=== PATIENT | female | born 1980 | race Caucasian/White ===

== ENCOUNTER 2017-11-27 07:48 | Emergency (ER) | payer OTHER, SELFPAY ==
[2017-11-27 07:50] VITALS: BP 150/80; PULSE 82; RESP 16; TEMP 36.3; O2SAT 99
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
[2017-11-27] MEDS: Ibuprofen 600 MG TAB PO (08:49)
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
[2017-11-27 10:29] VITALS: BP 141/72; PULSE 61; RESP 17; TEMP 36.7; O2SAT 96
== END 2017-11-27 11:50 | disposition home or self-care (01) ==
PROVIDERS: Emergency Provider Physician Assistant; PCP Nurse Practitioner Gerontology
DX: S92.351A Displaced fracture of fifth metatarsal bone, right foot, initial encounter for closed fracture (principal); S92.211A Displaced fracture of cuboid bone of right foot, initial encounter for closed fracture; S92.021A Displaced fracture of anterior process of right calcaneus, initial encounter for closed fracture; V43.52XA Car driver injured in collision with other type car in traffic accident, initial encounter
CPT/HCPCS: 29515; 99284; 73630; 73700; 99285; E0114; Q9967

== ENCOUNTER 2017-12-23 16:31 | Outpatient (CLI) | payer OTHER, SELFPAY ==
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
== END 2017-12-23 16:51 ==
PROVIDERS: PCP Nurse Practitioner Gerontology; Visit Provider Orthopaedic Surgery
DX: S92.211D Displaced fracture of cuboid bone of right foot, subsequent encounter for fracture with routine healing (principal); S92.351D Displaced fracture of fifth metatarsal bone, right foot, subsequent encounter for fracture with routine healing
CPT/HCPCS: 73630

== ENCOUNTER 2018-01-02 11:43 | Outpatient (CLI) | payer OTHER, SELFPAY ==
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
== END 2018-01-02 12:03 ==
PROVIDERS: PCP Nurse Practitioner Gerontology; Visit Provider Orthopaedic Surgery
DX: S92.211D Displaced fracture of cuboid bone of right foot, subsequent encounter for fracture with routine healing (principal); S92.351D Displaced fracture of fifth metatarsal bone, right foot, subsequent encounter for fracture with routine healing
CPT/HCPCS: 73630

== ENCOUNTER 2018-01-21 08:48 | Outpatient (CLI) | payer OTHER, SELFPAY ==
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
== END 2018-01-21 09:08 ==
PROVIDERS: PCP Nurse Practitioner Gerontology; Visit Provider Orthopaedic Surgery
DX: S92.351D Displaced fracture of fifth metatarsal bone, right foot, subsequent encounter for fracture with routine healing (principal)
CPT/HCPCS: 73630

== ENCOUNTER 2018-02-20 13:58 | Outpatient (CLI) | payer OTHER, SELFPAY ==
--- NOTE | 2018-02-20 13:58 | DI.RAD_ITS ---
SYMPTOMS/DIAGNOSIS: F/U FRACTURE RIGHT FOOT: Three views were obtained and show previously described fractures of the base and mid shaft of the fifth metatarsal which appear to be healing with no change in alignment in comparison with examination of January 21.
== END 2018-02-20 14:18 ==
PROVIDERS: PCP Nurse Practitioner Gerontology; Visit Provider Orthopaedic Surgery
DX: S92.351D Displaced fracture of fifth metatarsal bone, right foot, subsequent encounter for fracture with routine healing (principal)
CPT/HCPCS: 73630

== ENCOUNTER 2018-08-25 07:18 | Outpatient (CLI) | payer OTHER, SELFPAY ==
[2018-08-25 08:02] LABS: HCT 38.4 % (36.0-46.0); HGB 12.8 g/dL (12.0-15.5); Mean Corp. HGB Concentration 33.3 g/dL (32.0-36.0); Mean Corpuscular Hemoglobin 29.8 pg (27.0-33.0); Mean Corpuscular Volume 89.3 fL (80-95); Mean Platelet Volume 10.6 fL (8.0-11.0); Platelet Count 243 x1000/uL (130-400); RBC Distribution Width 13.7 % (11.7-14.6); White Blood Cell Count 5.03 k/cumm (4.4-10.8)
[2018-08-25 09:07] LABS: Vitamin D 25 Total 11.7 ng/ml (30-100)
[2018-08-25 09:10] LABS: Calcium 8.7 mg/dL (8.5-10.1); Ferritin 43 ng/mL (8-388); Vitamin B12 272 pg/mL (193-986)
[2018-08-25 09:18] LABS: Iron 58 ug/dL (50-175)
[2018-08-26 11:07] LABS: Parathyroid Hormone,Intact 96 pg/ml (19-88)
== END 2018-08-25 07:38 ==
PROVIDERS: PCP Family Medicine; Visit Provider Physician Assistant
DX: Z98.84 Bariatric surgery status (principal); K91.2 Postsurgical malabsorption, not elsewhere classified; E66.01 Morbid (severe) obesity due to excess calories
CPT/HCPCS: 36415; 82306; 85027; 82310; 82565; 82607; 82728; 83540; 83970; 84425

== ENCOUNTER 2018-08-28 07:14 | Outpatient (CLI) | payer OTHER, SELFPAY ==
[2018-08-30 15:45] LABS: Thiamine (Vitamin B1), WB 109 nmol/L (70-180)
== END 2018-08-28 07:34 ==
PROVIDERS: PCP Family Medicine; Visit Provider Physician Assistant
DX: K91.2 Postsurgical malabsorption, not elsewhere classified (principal); E66.01 Morbid (severe) obesity due to excess calories; Z98.84 Bariatric surgery status
CPT/HCPCS: 84425

== ENCOUNTER 2018-10-31 20:50 | Observation (INO) | payer OTHER, SELFPAY ==
[2018-10-31 20:55] VITALS: BP 117/55; PULSE 60; RESP 16; TEMP 36.6; O2SAT 99
--- NOTE | 2018-10-31 21:01 | ED.GENADUL_ITS ---
Discharge Plan Disposition Patient Disposition: [facility] INPATIENT Condition: Stable Discharge Details Chief Complaint: Abd Prob Clinical Impression: Small bowel obstruction Primary Care Provider: Jt Gonzales ED Provider: Sophie Avalos Home Meds and New Rx's Prescriptions: No Action diclofenac sodium 50 MG tablet,delayed release (DR/EC) 50 mg PO bid prn Qty: 60 RF: 0 venlafaxine 225 MG tablet extended release 24hr 225 mg PO DAILY Qty: 30 RF: 2 Medical Decision Making 38-year-old female with history of appendectomy, cholecystectomy and tubal ligation who presents with upper abdominal pain and bloating for the past 2 days. Vitals within normal limits. Patient appears nontoxic. Tenderness to palpation in epigastrium, right upper quadrant left upper quadrant. Differential diagnosis includes gastritis, gastroenteritis, peptic ulcer disease, pancreatitis. Will place an IV, bolus IV fluids, labs, urine and Zofran, Pepcid and GI cocktail and reassess. Patient would rather hold on CT imaging at this time until labs resulted in reassessment after meds. 2209 -- pt feels no better. Reassessment of abdomen notes right upper quadrant, epigastric and left upper quadrant pain. Abdomen soft but still cleaner tube. Labs reviewed and unremarkable. Normal white blood cell count, electrolytes, troponin and lipase. Urinalysis pending. Urine negative. Will send for CT abdomen and pelvis and give a dose of Toradol and reassess. 2299 -- CT abdomen notes dilated small bowel loop and some fecal material with surrounding edema consistent with early small bowel obstruction. Patient denies any relief of pain. Pt has not yet received toradol - dose given now. 2309 -- d/w Dr. Rico - accepts pt for admission. Medical Records Medical records reviewed: Yes I reviewed the patient's medical records. Lab Data Lab results reviewed: Yes I reviewed the patient's lab results. CT Abdomen and Pelvis With Contrast EXAM DATE/TIME: 10/31/2018 10:19 PM CLINICAL HISTORY: 38 years old, female; Abdominal pain; Localized; Upper; Prior surgery; Surgery date: 1-6 months; Surgery type: Gastric bypass surgery in 05/2018; Additional info: Nausea, upper abdominal pain xfew days. R/O sbo TECHNIQUE: Imaging protocol: Axial computed tomography images of the abdomen and pelvis with intravenous contrast. Coronal and sagittal reformatted images were created and reviewed. Radiation optimization: All CT scans at this facility use at least one of these dose optimization techniques: automated exposure control; mA and/or kV adjustment per patient size (includes targeted exams where dose is matched to clinical indication); or iterative reconstruction. Contrast material: [id number];Contrast volume: 100 ml;Contrast route: IV 20G LAC; COMPARISON: No relevant prior studies available. FINDINGS: Liver: No suspicious lesions. Gallbladder and bile ducts: No acute or concerning findings. Pancreas: Unremarkable. No ductal dilation. Spleen: No suspicious lesions. Adrenals: Unremarkalbe. No suspicious mass. Kidneys and ureters: Unremarkable. No hydro. No suspicious lesions. Stomach and bowel: Slightly dilated small bowel loop in the right lower quadrant has some fecal material and some surrounding edema. Appendix: Appendix not visualized. Intraperitoneal space: No free air. No significant fluid collection. Vasculature: Unremarkable. No acute findings Lymph nodes: Unremarkable. Bladder: Unremarkable as visualized. Reproductive: Unremarkable as visualized. Bones/joints: No acute fracture. No dislocation. Soft tissues: Unremarkable. IMPRESSION: Early evidence of small bowel obstruction possibly from adhesions. 10/31/18 22:20 Urine - Reflex from Ua Urine Culture - Pending Laboratory Tests Range/Units 10/31/18 10/31/18 10/31/18 21:25 21:25 21:25 WBC (4.4-10.8) k/cumm 8.84 RBC (4.00-5.20) m/cumm 4.56 Hgb (12.0-15.5) g/dL 13.6 Hct (36.0-46.0) % 40.3 MCV (80-95) fL 88.4 MCH (27.0-33.0) pg 29.8 MCHC (32.0-36.0) g/dL 33.7 RDW (11.7-14.6) % 13.3 Plt Count (130-400) x1000/uL 217 MPV (8.0-11.0) fL 10.9 Immature Gran % 0.3 Neutrophils % 70.5 Lymphocytes % 22.4 Monocytes % 5.8 Eosinophils % 0.5 Basophils % 0.5 Absolute Neutrophils (1.2-6.7) k/cumm 6.24 Absolute Lymphocytes (1.2-3.4) k/cumm 1.98 Absolute Monocytes (0.11-0.7) k/cumm 0.51 Absolute Eosinophils (0.0-0.7) k/cumm 0.04 Absolute Basophils (0.0-0.2) k/cumm 0.04 Sodium (136-145) mmol/L 139 Potassium (3.5-5.1) mmol/L 3.6 Chloride (98-107) mmol/L 104 Carbon Dioxide (21.0-32.0) mmol/L 24.2 Anion Gap (3-11) mmol/L 10.8 BUN (7-18) mg/dL 9 Creatinine (0.55-1.02) mg/dL 0.86 Estimated GFR/1.73 m2 (mL/min/1.73m2) >= 60.00 Glucose (70-100) mg/dL 118 H Calcium (8.5-10.1) mg/dL 9.5 Magnesium (1.8-2.4) mg/dL 1.9 Total Bilirubin (0.2-1.0) mg/dL 0.2 AST (15-37) U/L 11 L ALT (12-78) U/L 15 Alkaline Phosphatase (46-116) U/L 83 Troponin I (0.00-0.06) ng/mL < 0.05 Total Protein (6.4-8.2) g/dL 7.6 Albumin (3.4-5.0) g/dL 3.8 Lipase (73-393) U/L 62 L Urine Color (Yellow) Urine Clarity (Clear) Urine pH (5-8) Ur Specific [place] (1.005-1.025) Urine Protein (Negative) mg/dL Urine Ketones (Negative) mg/dL Urine Blood (Negative) Urine Nitrite (Negative) Urine Bilirubin (Negative) Urine Urobilinogen (Up TO 0.2) EU/dL Ur Leukocyte Esterase (Negative) Urine RBC (0-2) Urine WBC (0-5) HPF Ur Epithelial Cells (Negative) HPF Urine Crystals (Negative) HPF Urine Bacteria (Negative) HPF Urine Casts (Negative) LPF Urine Mucus (Negative) Urine Other (Negative) Ur Culture Indicated? Urine Glucose (Negative) mg/dL Range/Units 10/31/18 22:20 WBC (4.4-10.8) k/cumm RBC (4.00-5.20) m/cumm Hgb (12.0-15.5) g/dL Hct (36.0-46.0) % MCV (80-95) fL MCH (27.0-33.0) pg MCHC (32.0-36.0) g/dL RDW (11.7-14.6) % Plt Count (130-400) x1000/uL MPV (8.0-11.0) fL Immature Gran % Neutrophils % Lymphocytes % Monocytes % Eosinophils % Basophils % Absolute Neutrophils (1.2-6.7) k/cumm Absolute Lymphocytes (1.2-3.4) k/cumm Absolute Monocytes (0.11-0.7) k/cumm Absolute Eosinophils (0.0-0.7) k/cumm Absolute Basophils (0.0-0.2) k/cumm Sodium (136-145) mmol/L Potassium (3.5-5.1) mmol/L Chloride (98-107) mmol/L Carbon Dioxide (21.0-32.0) mmol/L Anion Gap (3-11) mmol/L BUN (7-18) mg/dL Creatinine (0.55-1.02) mg/dL Estimated GFR/1.73 m2 (mL/min/1.73m2) Glucose (70-100) mg/dL Calcium (8.5-10.1) mg/dL Magnesium (1.8-2.4) mg/dL Total Bilirubin (0.2-1.0) mg/dL AST (15-37) U/L ALT (12-78) U/L Alkaline Phosphatase (46-116) U/L Troponin I (0.00-0.06) ng/mL Total Protein (6.4-8.2) g/dL Albumin (3.4-5.0) g/dL Lipase (73-393) U/L Urine Color (Yellow) Yellow Urine Clarity (Clear) Clear Urine pH (5-8) 5.5 Ur Specific [place] (1.005-1.025) 1.025 Urine Protein (Negative) mg/dL Negative Urine Ketones (Negative) mg/dL 15 H Urine Blood (Negative) Small H Urine Nitrite (Negative) Negative Urine Bilirubin (Negative) Small H Urine Urobilinogen (Up TO 0.2) EU/dL 0.2 Ur Leukocyte Esterase (Negative) Negative Urine RBC (0-2) 3-5 H Urine WBC (0-5) HPF 0-2 Ur Epithelial Cells (Negative) HPF Rare Urine Crystals (Negative) HPF Negative Urine Bacteria (Negative) HPF Moderate Urine Casts (Negative) LPF Negative Urine Mucus (Negative) Moderate Urine Other (Negative) Negative Ur Culture Indicated? Yes Urine Glucose (Negative) mg/dL Negative HPI General Mode of arrival: ambulatory . Date/Time Provider Initiated Documentation: 10/31/18 21:00 . Limitations to Documentation: no limitations . Information obtained by: patient . HPI Narrative: Patient is a 38-year-old female with a history of anxiety, depression, Rosario's esophagus, appendectomy, cholecystectomy and tubal ligation who presents with upper abdominal pain and bloating for the past 2 days. States the pain is constant, sharp without radiation currently 7/10. She admits to nausea but denies any vomiting. She states her last bowel movement was today within normal limits. She denies any aggravating factors. She took Gas-X without relief. She denies any similar history in the past, urinary symptoms, recent antibiotics, recent travel or sick contacts. She has diclofenac on her medication list but states she has not taken it for several months. She states her last menstrual period was 2 weeks ago. Related Data Home Medications Medication Instructions Recorded Confirmed diclofenac sodium 50 mg PO bid prn #60 tab-cap 06/22/16 10/31/18 venlafaxine 225 mg PO DAILY #30 tab-cap 10/29/16 10/31/18 Allergies Allergy/AdvReac Type Severity Reaction Status Date / Time No Known Allergies Allergy Unverified 10/31/18 21:02 General Stated Complaint: Abd Prob FAISAL: 3 Review of Systems Review of Systems All systems reviewed & are unremarkable except as noted in HPI and below Constitutional Reports as per HPI, Denies chills and Denies fever(s) Eyes Denies blurry vision ENT Denies dizziness, Denies sore throat and Denies throat swelling Cardiovascular Denies chest pain and Denies dyspnea Respiratory Denies cough and Denies dyspnea Gastrointestinal Reports abdominal pain, Denies diarrhea and Denies vomiting Genitourinary Denies hematuria and Denies dysuria Musculoskeletal Denies back pain and Denies numbness Integumentary/Breasts Denies lesions and Denies rash Neurologic Denies dizziness, Denies focal weakness and Denies numbness Allergic/Immunologic Denies throat swelling [facility] Medical History Anxiety (Inactive) Barretts esophagus (Inactive 01/13/16) Depressive disorder (Inactive) Surgical History Appendectomy Cholecystectomy Dilation and curettage Ligation of fallopian tube Family History Mother No problems noted. Father Essential hypertension Depression Heart disease Brother No problems noted. Grandfather Stroke Grandfather Stroke Grandmother No problems noted. Grandmother No problems noted. Son No problems noted. Daughter Depression Daughter No problems noted. Social History Smoking/Tobacco Use Status: Former Tobacco Use Alcohol Intake: never Drug use: Never Do you feel safe at home: Yes Do you feel safe in your relationship?: Yes Exam Const General: cooperative, healthy appearing and no acute distress HENMT Head: normal to inspection Face and sinus: normal facial exam Eyes General: appearance normal, both eyes and all related structures Pupils: PERRL EOM: EOM intact bilaterally Neck Neck: normal visual inspection and No submandibular swelling Lymphatic: no lymphadenopathy noted Chest Chest: normal inspection of the chest and no tenderness Resp Effort & Inspection: normal respiratory effort and able to speak in complete sentences Auscultation: clear to auscultation bilaterally Cardio Rate: regular rate Rhythm: regular rhythm GI Inspection: normal to inspection Palpation: soft, not firm, not rigid and tender in the epigastrum, in the LUQ and in the RUQ Auscultation: normal bowel sounds Back/Spine/Pelvis Back: no CVA tenderness Skin General skin exam: no rashes or lesions noted Neuro General: alert, awake and oriented x3 Cognition: normal cognition Speech: speech normal Motor: muscle tone normal throughout Sensory Exam: no sensory deficits noted Extrem General: normal to inspection, full ROM, normal capillary refill, no calf tenderness bilaterally and no edema Psych Appearance: grossly normal Mental Status: mental status grossly normal Speech and Movement: speech and movement normal Affect: normal affect Course Vital Signs Temperature 97.9 F 10/31/18 20:55 Pulse 60 10/31/18 20:55 Respiratory Rate 16 10/31/18 20:55 Blood Pressure 117/55 L 10/31/18 20:55 Pulse Oximetry 99 10/31/18 20:55 Temperature 97.9 F 10/31/18 20:55 Temperature Source Temporal Artery Scan 10/31/18 20:55 Pulse 60 10/31/18 20:55 Respiratory Rate 16 10/31/18 20:55 Respiratory Effort 10/31/18 20:55 Blood Pressure 117/55 L 10/31/18 20:55 Pulse Oximetry 99 10/31/18 20:55 Oxygen Delivery Method Room Air 10/31/18 20:55 Oxygen Flow Rate 0 10/31/18 20:55 Pain Level 7 10/31/18 20:55
[2018-10-31] MEDS: Normal Saline 1,000 ML 1000 ML IV (21:39)
[2018-10-31] MEDS: FAMOTIDINE 20 MG/50 ML BAG 200 MG IVPB (21:39)
[2018-10-31] MEDS: Ondansetron 4 MG/2 ML VIAL IVP (21:40)
[2018-10-31] MEDS: Normal Saline Flush 10 ML SYR IVP (21:41)
[2018-10-31 22:04] LABS: Lipase 62 U/L (73-393)
[2018-10-31 22:07] LABS: Abs Immature Grans 0.03 k/cumm (0.0-0.09); Absolute Basophil Count 0.04 k/cumm (0.0-0.2); Absolute Eosinophil Count 0.04 k/cumm (0.0-0.7); Absolute Lymphocyte Count 1.98 k/cumm (1.2-3.4); Absolute Monocyte Count 0.51 k/cumm (0.11-0.7); Absolute Neutrophil Count 6.24 k/cumm (1.2-6.7); Basophils % 0.5; Eosinophils % 0.5; HCT 40.3 % (36.0-46.0); HGB 13.6 g/dL (12.0-15.5); Immature Grans % 0.3; Lymphocytes % 22.4; Mean Corp. HGB Concentration 33.7 g/dL (32.0-36.0); Mean Corpuscular Hemoglobin 29.8 pg (27.0-33.0); Mean Corpuscular Volume 88.4 fL (80-95); Mean Platelet Volume 10.9 fL (8.0-11.0); Monocytes % 5.8; Neutrophils % 70.5; Platelet Count 217 x1000/uL (130-400); RBC 4.56 m/cumm (4.00-5.20); RBC Distribution Width 13.3 % (11.7-14.6); White Blood Cell Count 8.84 k/cumm (4.4-10.8)
[2018-10-31 22:11] LABS: ALT 15 U/L (12-78); AST 11 U/L (15-37); Albumin 3.8 g/dL (3.4-5.0); Alkaline Phosphatase 83 U/L (46-116); Anion Gap 10.8 mmol/L (3-11); BUN 9 mg/dL (7-18); Bilirubin, Total 0.2 mg/dL (0.2-1.0); CO2 24.2 mmol/L (21.0-32.0); CREATININE 0.86 mg/dL (0.55-1.02); Calcium 9.5 mg/dL (8.5-10.1); Chloride 104 mmol/L (98-107); Glucose 118 mg/dL (70-100); Magnesium 1.9 mg/dL (1.8-2.4); Potassium 3.6 mmol/L (3.5-5.1); Sodium 139 mmol/L (136-145); Total Protein 7.6 g/dL (6.4-8.2)
[2018-10-31 22:15] LABS: Troponin I < 0.05 ng/mL (0.00-0.06)
[2018-10-31 22:28] LABS: Bilirubin Small (Negative); Blood Small (Negative); Clarity Clear (Clear); Glucose Negative (Negative); Ketones 15 mg/dL (Negative); Leukocyte Esterase Negative (Negative); Nitrite Negative (Negative); Specific Gravity 1.025 (1.005-1.025); Urobilinogen 0.2 EU/dL (Up TO 0.2); pH 5.5 (5-8)
[2018-10-31 22:45] LABS: Bacteria Moderate HPF (Negative); C & S Indicated? Yes; Casts Negative LPF (Negative); Crystals Negative HPF (Negative); Epithelial Cells Rare HPF (Negative); Mucus Moderate (Negative); Other Cells Negative (Negative); WBC 0-2 HPF (0-5)
[2018-10-31] MEDS: Omnipaque 350 MG/ML 100 ML BTL IJ (22:47)
--- NOTE | 2018-10-31 22:48 | DI.CT_ITS ---
SYMPTOM/DIAGNOSIS: UPPER ABD PAIN, R/O ACUTE ABD PROCESS, R/O SBO CT ABDOMEN AND PELVIS: Post contrast examination was performed. Comparison 04/26/07 The patient is status post cholecystectomy. There is no biliary ductal dilatation. The pancreas, spleen, adrenal glands, kidneys, ureters and urinary bladder are unremarkable. The reproductive organs are unremarkable. The abdominal aorta is of normal caliber. No significant abdominal or pelvic adenopathy, ascites or pneumoperitoneum is seen. The patient is status post gastric bypass surgery. There are mildly dilated loops of small bowel in the right lower quadrant with increased attenuation in the adjacent fat. Bowel obstruction cannot be excluded. The remainder of the bowel is unremarkable. IMPRESSION: Mildly dilated loop of small bowel in the right lower quadrant. This my represent an early small bowel obstruction.
--- NOTE | 2018-10-31 23:03 | DI.VRAD_ITS ---
EXAM: CT Abdomen and Pelvis With Contrast EXAM DATE/TIME: 10/31/2018 10:19 PM CLINICAL HISTORY: 38 years old, female; Abdominal pain; Localized; Upper; Prior surgery; Surgery date: 1-6 months; Surgery type: Gastric bypass surgery in 05/2018; Additional info: Nausea, upper abdominal pain xfew days. R/O sbo TECHNIQUE: Imaging protocol: Axial computed tomography images of the abdomen and pelvis with intravenous contrast. Coronal and sagittal reformatted images were created and reviewed. Radiation optimization: All CT scans at this facility use at least one of these dose optimization techniques: automated exposure control; mA and/or kV adjustment per patient size (includes targeted exams where dose is matched to clinical indication); or iterative reconstruction. Contrast material: [id number];Contrast volume: 100 ml;Contrast route: IV 20G LAC; COMPARISON: No relevant prior studies available. FINDINGS: Liver: No suspicious lesions. Gallbladder and bile ducts: No acute or concerning findings. Pancreas: Unremarkable. No ductal dilation. Spleen: No suspicious lesions. Adrenals: Unremarkalbe. No suspicious mass. Kidneys and ureters: Unremarkable. No hydro. No suspicious lesions. Stomach and bowel: Slightly dilated small bowel loop in the right lower quadrant has some fecal material and some surrounding edema. Appendix: Appendix not visualized. Intraperitoneal space: No free air. No significant fluid collection. Vasculature: Unremarkable. No acute findings Lymph nodes: Unremarkable. Bladder: Unremarkable as visualized. Reproductive: Unremarkable as visualized. Bones/joints: No acute fracture. No dislocation. Soft tissues: Unremarkable. IMPRESSION: Early evidence of small bowel obstruction possibly from adhesions. Dictated and Authenticated by: Alber Amador MD. Ordering:SRIDHAR Barrios MD
[2018-10-31] MEDS: Ketorolac 30 MG/ML VIAL IVP (23:07)
[2018-10-31 23:52] VITALS: BP 118/81; PULSE 59; RESP 18; O2SAT 98
[2018-10-31 23:58] VITALS: BP 118/81; PULSE 59; RESP 18; TEMP 37.1; O2SAT 98
[2018-11-01 03:54] VITALS: BP 101/64; PULSE 54; RESP 17; TEMP 36.7; O2SAT 100
--- NOTE | 2018-11-01 08:09 | INITIAL_ITS ---
- If Service Date Differs Date of service: 11/01/18 Time of Service: 08:09 Care Management Initial Assess REASON FOR HOSPITALIZATION:: SBO PAST MEDICAL HISTORY/PAST SURGICAL HISTORY:: Past Medical History: Rosario's esophagus. Depressive disorder. Past surgical history: Appendectomy. Cholecystectomy. D&C. Ligation of fallopian tube PREVIOUS FUNCTIONAL STATUS/SOCIAL/FAMILY SUPPORTS:: Brendan lives in a single family home in [place] with her and 2 children. 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 CURRENT FUNCTIONAL STATUS:: Nadiya was sitting up in bed and was pleasant and cooperative and readily engaged in conversation. She states she is feeling better and if she is able to tolerate food today she will be discharged. ADVANCE DIRECTIVES:: None on file Has patient been provided with information about the portal?: No Did the patient sign up for the portal?: Yes (previously) CODE STATUS:: Full Code INSURANCE COVERAGE / FINANCIAL ISSUES:: CBA CURRENT HOME/COMMUNITY SERVICES/EQUIPMENT:: none PRIMARY CARE PHYSICIAN:: Jt Celis POTENTIAL DISCHARGE NEEDS:: Follow up with surgeon, PCP and discharge plan of care PATIENT/FAMILY EDUCATION NEEDS:: Discharge plan, limitations, follow up plan, Ask Me Three. ANTICIPATED BARRIERS TO DISCHARGE:: None identified TRANSPORTATION:: via private vehicle with family when ready PLAN:: brendan will be bdischarged home with no services. She will follow up with her surgeon and PCP and discharge plan of care.
[2018-11-01 08:30] VITALS: BP 102/67; PULSE 51; RESP 15; TEMP 36.9; O2SAT 97
[2018-11-01] MEDS: Normal Saline Flush 10 ML SYR IVP (10:24)
--- NOTE | 2018-11-01 10:51 | HPE_ITS ---
Date of service: 11/01/18 Time of Service: 10:51 Assessment and Plan (1) Abdominal pain, epigastric: Current visit: Yes Status: Acute 38 y/o female admitted with a 1-day history of epigastric pain. CT scan a bd/pelvis was read per VRADS as suggestive of early SBO due to one dilated loop of small bowel seen in the RLQ with fecalization and some edema. Admission labs were unremarkable. She denies any nausea or vomiting. She is passing flatus. Her abdominal pain has resolved. Suspect possible enteritis which appears to be resolving. Abdomen is benign on exam this morning. Will resume po diet and p darryl on discharge home this afternoon if tolerating po without problems. Recommend patient stay on po omeprazole and follow-up with bariatric surgeon next month as scheduled. All questions answered. Patient agreeable with plans. (2) History of Abdirizak-en-Y gastric bypass: Current visit: Yes Status: Acute As above. History of Present Illness Chief Complaint: Abdominal pain Narrative: 38 y/o female who was admitted through the ED overnight for c/o abdominal pain. Patient notes that she had some bloating last week which seemed to improve but recurred yesterday and pro gressed to sharp, intermittent, epigastric pain associated with nausea but no emesis. Last BM was earlier yesterday which she describes as normal in appearance with solid, brown stool. No melena or hematochezia noted. She denies fevers, chills, dysuria, or hematuria. She has had a cholecystectomy and appendectomy in the past. More recently, she had a laparoscopic Abdirizak-en-Y gastric bypass in 05/2018 at [facility]. She has lost > 80 pounds. She follows up with her bariatric surgeon about every 3 months and her next appointment is in mid-November. She denies any nausea this am. She notes that her abdominal pain has subsided and is only mildly sore at this time. She is passing flatus. She has diclofenac listed on her home meds but notes that she has not taken any in a while. She does take vitamins and omeprazole daily as well as venlafaxine. Review of Systems Review of Systems All systems reviewed & are unremarkable except as noted in HPI and below Constitutional Denies chills and Denies fever(s) Cardiovascular Denies chest pain, Denies rapid heart rate and Denies dyspnea Respiratory Denies cough and Denies dyspnea Gastrointestinal Reports abdominal pain, Denies melena, Reports bloating, Denies hematochezia, Denies constipation and Denies diarrhea Genitourinary Denies hematuria and Denies dysuria PFSH Family History Mother No problems noted. Father Essential hypertension Depression Heart disease Brother No problems noted. Grandfather Stroke Grandfather Stroke Grandmother No problems noted. Grandmother No problems noted. Son No problems noted. Daughter Depression Daughter No problems noted. Social History Smoking/Tobacco Use Status: Former Tobacco Use Alcohol Intake: never Drug use: Never Do you feel safe at home: Yes Do you feel safe in your relationship?: Yes Meds Home Medications Medication Instructions Recorded Confirmed Type diclofenac sodium 50 mg PO bid prn #60 tab-cap 06/22/16 10/31/18 History venlafaxine 225 mg PO DAILY #30 tab-cap 10/29/16 10/31/18 History Allergies Allergy/AdvReac Type Severity Reaction Status Date / Time No Known Allergies Allergy Unverified 10/31/18 21:02 Exam Const General: cooperative, comfortable, no acute distress and well developed Nutritional Appearance: well nourished Orientation: alert and oriented x3 HENMT Head: normocephalic and atraumatic Eyes Sclera: sclerae normal Neck Neck: trachea midline and supple Resp Effort & Inspection: normal respiratory effort and able to speak in complete sentences Cardio Jugular venous pressure: no JVD Rate: regular rate Rhythm: regular rhythm GI Inspection: non-distended and scar (surgical scars healing well, skin intact) Palpation: soft, not firm, no guarding, not rigid and nontender Skin General skin exam: no rashes or lesions noted and no jaundice Neuro General: alert and oriented x3 Speech: speech normal Psych Appearance: grossly normal Affect: normal affect Attitude: cooperative Results Imaging Abdomen CT scan report/results: report reviewed and image reviewed CT scan - pelvis: report reviewed and image reviewed Imaging Studies: Patient Name: ULYSSES MCMAHON #: [id number]: ER Ordering Provider: : REG ER Primary Care Provider: Jt Gonzales Date of Exam: 10/31/18Sex: F : 1980Age: 38 Exam(s) EXAM: CT Abdomen and Pelvis With Contrast EXAM DATE/TIME: 10/31/2018 10:19 PM CLINICAL HISTORY: 38 years old, female; Abdominal pain; Localized; Upper; Prior surgery; Surgery date: 1-6 months; Surgery type: Gastric bypass surgery in 05/2018; Additional info: Nausea, upper abdominal pain xfew days. R/O sbo TECHNIQUE: Imaging protocol: Axial computed tomography images of the abdomen and pelvis with intravenous contrast. Coronal and sagittal reformatted images were created and reviewed. Radiation optimization: All CT scans at this facility use at least one of these dose optimization techniques: automated exposure control; mA and/or kV adjustment per patient size (includes targeted exams where dose is matched to clinical indication); or iterative reconstruction. Contrast material: [id number];Contrast volume: 100 ml;Contrast route: IV 20G LAC; COMPARISON: No relevant prior studies available. FINDINGS: Liver: No suspicious lesions. Gallbladder and bile ducts: No acute or concerning findings. Pancreas: Unremarkable. No ductal dilation. Spleen: No suspicious lesions. Adrenals: Unremarkalbe. No suspicious mass. Kidneys and ureters: Unremarkable. No hydro. No suspicious lesions. Stomach and bowel: Slightly dilated small bowel loop in the right lower quadrant has some fecal material and some surrounding edema. Appendix: Appendix not visualized. Intraperitoneal space: No free air. No significant fluid collection. Vasculature: Unremarkable. No acute findings Lymph nodes: Unremarkable. Bladder: Unremarkable as visualized. Reproductive: Unremarkable as visualized. Bones/joints: No acute fracture. No dislocation. Soft tissues: Unremarkable. IMPRESSION: Early evidence of small bowel obstruction possibly from adhesions. Dictated and Authenticated by: Alber Amador MD. Ordering:SRIDHAR Barrios MD Ordered By: CC: Dictated By: Camila sousa 10/31/18 9541 10/31/18 2303 Transcribed By: Esther Watson This is privileged, confidential information intended only for the provider named. Any use or distribution by any person other than this provider is strictly prohibited. If you receive this report in error, please notify us immediately at [phone] and return the original report to us at the address above. Thank-you. Labs : 10/31/18 21:25 10/31/18 21:25 Laboratory Results - last 24 hr 10/31/18 10/31/18 10/31/18 21:25 21:25 21:25 WBC 8.84 RBC 4.56 Hgb 13.6 Hct 40.3 MCV 88.4 MCH 29.8 MCHC 33.7 RDW 13.3 Plt Count 217 MPV 10.9 Immature Gran % 0.3 Neutrophils % 70.5 Lymphocytes % 22.4 Monocytes % 5.8 Eosinophils % 0.5 Basophils % 0.5 Absolute Neutrophils 6.24 Absolute Lymphocytes 1.98 Absolute Monocytes 0.51 Absolute Eosinophils 0.04 Absolute Basophils 0.04 Sodium 139 Potassium 3.6 Chloride 104 Carbon Dioxide 24.2 Anion Gap 10.8 BUN 9 Creatinine 0.86 Estimated GFR/1.73 m2 >= 60.00 Glucose 118 H Calcium 9.5 Magnesium 1.9 Total Bilirubin 0.2 AST 11 L ALT 15 Alkaline Phosphatase 83 Troponin I < 0.05 Total Protein 7.6 Albumin 3.8 Lipase 62 L Urine Color Urine Clarity Urine pH Ur Specific [place] Urine Protein Urine Ketones Urine Blood Urine Nitrite Urine Bilirubin Urine Urobilinogen Ur Leukocyte Esterase Urine RBC Urine WBC Ur Epithelial Cells Urine Crystals Urine Bacteria Urine Casts Urine Mucus Urine Other Ur Culture Indicated? Urine Glucose 10/31/18 22:20 WBC RBC Hgb Hct MCV MCH MCHC RDW Plt Count MPV Immature Gran % Neutrophils % Lymphocytes % Monocytes % Eosinophils % Basophils % Absolute Neutrophils Absolute Lymphocytes Absolute Monocytes Absolute Eosinophils Absolute Basophils Sodium Potassium Chloride Carbon Dioxide Anion Gap BUN Creatinine Estimated GFR/1.73 m2 Glucose Calcium Magnesium Total Bilirubin AST ALT Alkaline Phosphatase Troponin I Total Protein Albumin Lipase Urine Color Yellow Urine Clarity Clear Urine pH 5.5 Ur Specific [place] 1.025 Urine Protein Negative Urine Ketones 15 H Urine Blood Small H Urine Nitrite Negative Urine Bilirubin Small H Urine Urobilinogen 0.2 Ur Leukocyte Esterase Negative Urine RBC 3-5 H Urine WBC 0-2 Ur Epithelial Cells Rare Urine Crystals Negative Urine Bacteria Moderate Urine Casts Negative Urine Mucus Moderate Urine Other Negative Ur Culture Indicated? Yes Urine Glucose Negative Last Vital Signs Temp 36.9 C 11/01/18 08:30 Pulse 51 L 11/01/18 08:30 Resp 15 11/01/18 08:30 BP 102/67 11/01/18 08:30 Pulse Ox 97 11/01/18 08:30
--- NOTE | 2018-11-01 11:23 | W.PM.DS.N ---
Date of service: 11/01/18 Time of Service: 11:24 DS: Diagnosis Discharge Diagnosis (1) Abdominal pain, epigastric: Status: Acute (2) History of Abdirizak-en-Y gastric bypass: Status: Acute Discharge Plan Disposition Patient Disposition: HOME Condition: Stable Discharge Details Chief Complaint: Abd Prob Clinical Impression: Small bowel obstruction Reason For Visit: SMALL BOWEL OBSTRUCTION Admit Date/Time: 10/31/18 23:11 Admit Provider: Kandace Rico Attending Provider: Kandace Rioc Primary Care Provider: Jt Gonzales ED Provider: Sophie Avalos Hospital Course Hospital Course: 38 y/o female admitted through the ED for abdominal pain and nausea. Patient has a h/o laparoscopic Abdirizak-en-Y in 05/2018. She has also had prior appendectomy and cholecystectomy. Patient reported bloating a week ago and progressive sharp, intermittent pain with nausea yesterday. She had a BM yesterday and is passing flatus today. CT scan abd/pelvis was read as suggestive of early SBO per VRADS. On my review, I suspect it may be post-surgical changes vs. enteritis. Clinically, her symptoms have resolved as of 11/01/18. Patient denies any nausea or significant abdominal pain this am. Her diet and po meds are being resumed. She will be discharged home after lunch if able to tolerate po. She is instructed to follow-up with her bariatric surgeon next month as scheduled. Home Meds and New Rx's Prescriptions: New acetaminophen [Tylenol] 325 mg Tablet 650 mg PO Q4H PRN PRNQty: 0 RF: 0 Continued diclofenac sodium 50 MG tablet,delayed release (DR/EC) 50 mg PO bid prn Qty: 60 RF: 0 venlafaxine 225 MG tablet extended release 24hr 225 mg PO DAILY Qty: 30 RF: 2 Discharge Instructions Additional Instructions: Follow-up with bariatric surgeon next month as scheduled. Call to move up appointment sooner if needed for recurrent abdominal symptoms. Return to the ER if abdominal symptoms severe. Activity:: Activity as Tolerated Equipment/Supplies:: No Equipment Needed Diet:: As Tolerated Discharge Orders Discharge Orders: Discharge Order (Routine); Ordered 11/01/18 Ordered By: Kandace Rico DS: Data Vitals/I&O Vitals and I&O: Vital Signs Temperature 36.9 C 11/01/18 08:30 Temperature Source Tympanic 11/01/18 08:30 Pulse 51 L 11/01/18 08:30 Pulse Rhythm Regular 11/01/18 08:36 Respiratory Rate 15 11/01/18 08:30 Respiratory Effort Non-Labored 11/01/18 08:36 Respiratory Depth Normal 11/01/18 08:36 Respiratory Pattern Normal 11/01/18 08:36 Blood Pressure 102/67 11/01/18 08:30 Pulse Oximetry 97 11/01/18 08:30 Oxygen Delivery Method Room Air 11/01/18 08:30 Oxygen Flow Rate 0 11/01/18 08:30 Pain Level 5 11/01/18 08:30 Intake & Output 10/31/18 10/31/18 11/01/18 11:59 23:59 11:59 Intake Total 50 / 50 40 / 40 Output Total 600 / 600 Balance 50 / 50 -560 / -560 Weight 99.79 kg Intake: IV 50 / 50 40 / 40 Output: Urine 600 / 600 Other: Urine Color Yellow Urine Appearance Clear Urine Odor Normal Voiding Methods Toilet Labs on day of discharge: Labs from last 24 hours 10/31/18 10/31/18 10/31/18 22:20 21:25 21:25 WBC 8.84 RBC 4.56 Hgb 13.6 Hct 40.3 MCV 88.4 MCH 29.8 MCHC 33.7 RDW 13.3 Plt Count 217 MPV 10.9 Immature Gran % 0.3 Neutrophils % 70.5 Lymphocytes % 22.4 Monocytes % 5.8 Eosinophils % 0.5 Basophils % 0.5 Absolute Neutrophils 6.24 Absolute Lymphocytes 1.98 Absolute Monocytes 0.51 Absolute Eosinophils 0.04 Absolute Basophils 0.04 Sodium 139 Potassium 3.6 Chloride 104 Carbon Dioxide 24.2 Anion Gap 10.8 BUN 9 Creatinine 0.86 Estimated GFR/1.73 m2 >= 60.00 Glucose 118 H Calcium 9.5 Magnesium 1.9 Total Bilirubin 0.2 AST 11 L ALT 15 Alkaline Phosphatase 83 Troponin I < 0.05 Total Protein 7.6 Albumin 3.8 Lipase Urine Color Yellow Urine Clarity Clear Urine pH 5.5 Ur Specific [place] 1.025 Urine Protein Negative Urine Ketones 15 H Urine Blood Small H Urine Nitrite Negative Urine Bilirubin Small H Urine Urobilinogen 0.2 Ur Leukocyte Esterase Negative Urine RBC 3-5 H Urine WBC 0-2 Ur Epithelial Cells Rare Urine Crystals Negative Urine Bacteria Moderate Urine Casts Negative Urine Mucus Moderate Urine Other Negative Ur Culture Indicated? Yes Urine Glucose Negative 10/31/18 21:25 WBC RBC Hgb Hct MCV MCH MCHC RDW Plt Count MPV Immature Gran % Neutrophils % Lymphocytes % Monocytes % Eosinophils % Basophils % Absolute Neutrophils Absolute Lymphocytes Absolute Monocytes Absolute Eosinophils Absolute Basophils Sodium Potassium Chloride Carbon Dioxide Anion Gap BUN Creatinine Estimated GFR/1.73 m2 Glucose Calcium Magnesium Total Bilirubin AST ALT Alkaline Phosphatase Troponin I Total Protein Albumin Lipase 62 L Urine Color Urine Clarity Urine pH Ur Specific [place] Urine Protein Urine Ketones Urine Blood Urine Nitrite Urine Bilirubin Urine Urobilinogen Ur Leukocyte Esterase Urine RBC Urine WBC Ur Epithelial Cells Urine Crystals Urine Bacteria Urine Casts Urine Mucus Urine Other Ur Culture Indicated? Urine Glucose Preliminary micro results at discharge 10/31/18 22:20 Urine Culture - Preliminary Urine - Reflex from Ua Gram Positive Mara PFSH Family History Mother No problems noted. Father Essential hypertension Depression Heart disease Brother No problems noted. Grandfather Stroke Grandfather Stroke Grandmother No problems noted. Grandmother No problems noted. Son No problems noted. Daughter Depression Daughter No problems noted. Social History Smoking/Tobacco Use Status: Former Tobacco Use Alcohol Intake: never Drug use: Never Do you feel safe at home: Yes Do you feel safe in your relationship?: Yes
[2018-11-01] MEDS: Omeprazole 20 MG CAPCR PO (11:27)
--- NOTE | 2018-11-01 16:48 | PDOC.CMDIS ---
- If Service Date Differs Date of service: 11/01/18 Time of Service: 16:48 LACE Index Scoring Tool - Questions: Length of Stay (in days): 1 Acuity (Admit via E.D.?): Yes E.D. Visits: 2 - Answers: Total Score: 6 Risk of Readmission: Low Risk Care Management Discharge Reason for Hospitalization: SBO Discharge Plan: Home with no services. Transport with via private vehicle.Follow up with PCP, surgeon and discharge plan of care. Patient/Family Education Needs: discharge plan, limitations, follow up and Ask Me Three.
== END 2018-11-01 13:40 | disposition home or self-care (01) ==
LOC: ER 23:18 → MS 23:54
PROVIDERS: Admitting Provider Surgery; Emergency Provider Physician Assistant; PCP Family Medicine; Visit Provider Surgery
DX: R10.13 Epigastric pain (principal); Z98.84 Bariatric surgery status
CPT/HCPCS: 80053; 83690; 96365; 96375; 99235; 99285; NC; 74177; 81003; 81015; 83735; 84484; 85025; 87086; 99284; G0378; J1885; J2405; J3490

== ENCOUNTER 2019-04-07 08:01 | Outpatient (CLI) | payer OTHER, SELFPAY ==
[2019-04-07 09:08] LABS: HCT 40.9 % (36.0-46.0); HGB 13.7 g/dL (12.0-15.5); Mean Corp. HGB Concentration 33.5 g/dL (32.0-36.0); Mean Corpuscular Hemoglobin 29.5 pg (27.0-33.0); Mean Corpuscular Volume 88.1 fL (80-95); Mean Platelet Volume 10.6 fL (8.0-11.0); Platelet Count 253 x1000/uL (130-400); RBC 4.64 m/cumm (4.00-5.20); RBC Distribution Width 13.7 % (11.7-14.6); White Blood Cell Count 5.24 k/cumm (4.4-10.8)
[2019-04-07 10:25] LABS: Iron 82 ug/dL (50-170)
[2019-04-07 10:53] LABS: CREATININE 0.75 mg/dL (0.55-1.02); Ferritin 23 ng/mL (8-252); Vitamin B12 305 pg/mL (193-986)
[2019-04-08 15:12] LABS: Parathyroid Hormone,Intact 79 pg/mL (19-88)
[2019-04-09 05:51] LABS: Thiamine (Vitamin B1), WB 121 nmol/L (70-180)
== END 2019-04-07 08:21 ==
PROVIDERS: Surgery; PCP Family Medicine; Visit Provider Physician Assistant
DX: K91.2 Postsurgical malabsorption, not elsewhere classified (principal); E66.01 Morbid (severe) obesity due to excess calories; Z98.84 Bariatric surgery status
CPT/HCPCS: 36415; 82306; 85027; 82310; 82565; 82607; 82728; 83540; 83970; 84425

== ENCOUNTER 2019-08-05 11:17 | Emergency (ER) | payer OTHER, SELFPAY ==
[2019-08-05 11:21] VITALS: BP 147/94; PULSE 80; RESP 18; TEMP 36.4; O2SAT 97
--- NOTE | 2019-08-05 11:35 | ED.GENADUL_ITS ---
Discharge Plan Disposition Patient Disposition: HOME Condition: Good Discharge Details Chief Complaint: Cellulitis Clinical Impression: Erysipelas Primary Care Provider: Jt Gonzales ED Provider: Nader Oswald Home Meds and New Rx's Prescriptions: Continued clindamycin HCl 300 mg capsule 300 mg PO Q8H 7 Days Qty: 21 RF: 0 diclofenac sodium 50 MG tablet,delayed release (DR/EC) 50 mg PO bid prn Qty: 60 RF: 0 venlafaxine 225 MG tablet extended release 24hr 225 mg PO DAILY Qty: 30 RF: 2 acetaminophen [Tylenol] 325 mg Tablet 650 mg PO Q4H PRN PRNQty: 0 RF: 0 Discharge Instructions Instructions: Cellulitis (ED) Additional Instructions: At this time although you do have cellulitis there is not a current indication for IV antibiotics. It is important that you still take the antibiotics that you have as directed. Take it with the yogurt with live culture to prevent any diarrhea. Monitor your symptoms closely, pictures daily to note improvement or worsening. If you are not having improvement after 48 to 72 hours or you notice significant worsening of your symptoms return immediately for reassessment. If you notice any worsening of your symptoms, or any new symptoms such as vomiting, diarrhea, fever, chills, shortness of breath, chest pain, numbness, weakness, or fainting , please return immediately to the emergency department for reevaluation. Please follow up with your primary care provider as soon as possible for reassessment and reevaluation. As always, it was a pleasure participating in your medical care today. Referrals: Jt Gonzales [Primary Care Provider] - Medical Decision Making This is a very pleasant 39-year-old female with no significant past medical history who presents today for evaluation of cellulitis. Patient was seen via telehealth and had complaint of mild redness and swelling over her nose and left cheek, she was started on clindamycin yesterday and is taken a total of 24 hours of it. She states that today looking at the picture she feels that it may be a tiny bit better, but it is not resolved. She was recommended to come to the ER for further evaluation. Currently she denies fever, chills, headache, neck pain or any other complaints. She has been taking the medication as directed. No other modifying factors. No history of lupus. Physical exam demonstrates very mild erythema and mild cellulitis over the nose and left cheek. No vesicles or bulla. Symptoms appear consistent with mild erysipelas. She has no fever chills tachycardia or signs of sepsis or systemic infection. At this time we will just 24 hours of oral antibiotics I do not think IV antibiotics are currently indicated. Comparing pictures on the patient's phone it actually does appear that the redness is mild to moderately improved from bef ore. Previous images showed redness on the right side, however none that is present currently. At this time with notable stability, no signs of decompensation or sepsis or worsening of the cellulitis I do feel that the patient can be sent home with close follow-up either here or with her PCP. I made it very clear that the patient should be taking pictures daily to continue to monitor it, and is free to contact us or Dr. Alejandra at any time if she has any change in her symptomatology. I have extensively reviewed the treatment plan and discharge instructions with the patient. I have addressed all patient concerns at this time. The patient was made aware of what symptoms to monitor for that would warrant a return to the emergency department. Discussed the plan with the patient, they demonstrate verbal understanding and agreement with our assessment and plan at this time. HPI General Date/Time Provider Initiated Documentation: 08/05/19 11:18 . HPI Narrative: This is a very pleasant 39-year-old female with no significant past medical history who presents today for evaluation of cellulitis. Patient was seen via telehealth and had complaint of mild redness and swelling over her nose and left cheek, she was started on clindamycin yesterday and is taken a total of 24 hours of it. She states that today looking at the picture she feels that it may be a tiny bit better, but it is not resolved. She was recommended to come to the ER for further evaluation. Currently she denies fever, chills, headache, neck pain or any other complaints. She has been taking the medication as directed. No other modifying factors. No history of lupus. Related Data Home Medications Medication Instructions Recorded Confirmed diclofenac sodium 50 mg PO bid prn #60 tab-cap 06/22/16 08/05/19 venlafaxine 225 mg PO DAILY #30 tab-cap 10/29/16 08/05/19 acetaminophen [Tylenol] 650 mg PO Q4H PRN PRN #0 tab 11/01/18 08/05/19 clindamycin HCl 300 mg capsule 300 mg PO Q8H 7 Days #21 cap 08/04/19 08/05/19 Previous Rx's Medication Instructions Recorded acetaminophen [Tylenol] 650 mg PO Q4H PRN PRN #0 tab 11/01/18 clindamycin HCl 300 mg capsule 300 mg PO Q8H 7 Days #21 cap 08/04/19 Allergies Allergy/AdvReac Type Severity Reaction Status Date / Time No Known Allergies Allergy Unverified 08/05/19 11:26 General Stated Complaint: Cellulitis FAISAL: 4 Review of Systems All systems reviewed & are unremarkable except as noted in HPI and below PFSH Social History Smoking/Tobacco Use Status: Former Tobacco Use Alcohol Intake: never Drug use: Never Substance use type: does not use Do you feel safe at home: Yes Do you feel safe in your relationship?: Yes Exam Narrative Exam Narrative: 1.Const: Well-nourished, Well-developed, appearing stated age 2.Eyes: PERRL, no conjunctival injection, and symmetrical lids. Please see skin 3.ENT: Atraumatic external nose and ears. Moist MM. Neck: Symmetric, trachea midline, No thyromegaly. Please see skin 4.CVS: +S1/S2, No murmurs or gallops. Peripheral pulses 2+ and equal in all extremities. Brisk capillary refill in all extremities. 5.RESP: Unlabored respiratory effort. Clear to auscultation bilaterally. No wheezes rales or rhonchi 6.GI: Soft, Nontender/Nondistended, No hepatosplenomegaly. No guarding or rebound. 7.MSK: Normocephalic/Atraumatic, Extremities w/o deformity or ttp No cyanosis or clubbing, Normal movement of all extremities 8.Skin: Warm, Dry. Patient's nose demonstrates mild amount of erythema, minimal swelling, minimal tenderness. The patient's left cheek also demonstrates a small amount of erythema, no vesicles or blisters. No tenderness. Negative Nikolsky sign. No large vesicles or bulla. No palpable purpura. No oral lesions. No mucosal lesions. No evidence of severe cellulitis. No evidence of vaccine preventable rash. 9.Neuro: experience design director II-XII grossly intact. Sensation grossly intact, no focal neurologic deficits. 10.Psych: (AAO) x3. Appropriate mood and affect Course Vital Signs Vital signs: Vital Signs Temperature 36.4 C L 08/05/19 11:21 Pulse 80 08/05/19 11:21 Respiratory Rate 18 08/05/19 11:21 Blood Pressure 147/94 H 08/05/19 11:21 Pulse Oximetry 97 08/05/19 11:21 Temperature 36.4 C L 08/05/19 11:21 Temperature Source Skin 08/05/19 11:21 Pulse 80 08/05/19 11:21 Respiratory Rate 18 08/05/19 11:21 Respiratory Effort 08/05/19 11:28 Blood Pressure 147/94 H 08/05/19 11:21 Blood Pressure Position Sitting 08/05/19 11:21 Pulse Oximetry 97 08/05/19 11:21 Oxygen Delivery Method Room Air 08/05/19 11:21 Oxygen Flow Rate 0 08/05/19 11:21 Pain Level 0 08/05/19 11:21
== END 2019-08-05 12:08 | disposition home or self-care (01) ==
PROVIDERS: Emergency Provider Student in an Organized Health Care Education/Training Program; PCP Family Medicine
DX: A46 Erysipelas (principal)
CPT/HCPCS: 99282

== ENCOUNTER → 2020-04-11 03:59 | Outpatient (CLI) | payer OTHER, SELFPAY ==
[2020-04-11 10:01] LABS: Anion Gap 9.3 mmol/L (3-11); BUN 9 mg/dL (7-18); C-Reactive Protein < 0.05 mg/dL (0.0-0.3); CO2 23.7 mmol/L (21.0-32.0); CREATININE 0.75 mg/dL (0.55-1.02); Calcium 8.7 mg/dL (8.5-10.1); Chloride 106 mmol/L (98-107); Glucose 68 mg/dL (74-106); Potassium 3.4 mmol/L (3.5-5.1); Sodium 139 mmol/L (136-145)
[2020-04-11 10:03] LABS: ESR 10 mm/hr (0-20)
[2020-04-12 09:27] LABS: Cyclic Citrullinated Peptide 6.9 U/mL (<5.0)
[2020-04-12 15:17] LABS: ANA Interpretation Negative (Negative)
== END ==
PROVIDERS: PCP Family Medicine; Visit Provider Nurse Practitioner Family
DX: R21 Rash and other nonspecific skin eruption (principal)
CPT/HCPCS: 36415; 80048; 85652; 86200; 86038; 86140

== ENCOUNTER 2020-07-11 04:16 | Outpatient (CLI) | payer OTHER, SELFPAY ==
[2020-07-11 12:13] LABS: COVID-19 PCR Negative (Negative)
== END 2020-07-11 04:17 | disposition home or self-care (01) ==
LOC: LBO 04:16
PROVIDERS: PCP Family Medicine; Visit Provider Internal Medicine Gastroenterology
DX: Z20.822 Contact with and (suspected) exposure to COVID-19 (principal); Z01.818 Encounter for other preprocedural examination
CPT/HCPCS: 87635

== ENCOUNTER 2020-07-25 16:41 | Outpatient (REF) | payer OTHER, SELFPAY ==
--- NOTE | 2020-07-25 15:45 | PAPFT_PTH ---
PATIENT: Nanette Cesar LOC: [facility] U#:[id number] AGE/SX: 40/F ROOM: RE07/25/[address]: RUBI Hernandez : 1980 BED: DIS: 07/25/2020 SPEC #: [id number] RECD: 07/26/20 12:45 STATUS: CHANDA REQ #: [id number] MORIAH: 07/25/20 15:[address]: Sahra Self DEPT: [facility] Cytology RECD BY: Fabiana Lr ENTERED: 07/26/20 12:45 SP TYPE: PAPFT OTHR DR: Jt Gonzales MD Tissues: 1 - CX/ENDOCX FOR PAP SMEARS Procedures: PAP THIN PREP/UVM Screening HPV DNA PROBE Comments: [id number]
== END 2020-07-25 16:42 | disposition home or self-care (01) ==
LOC: LBN 16:41
PROVIDERS: PCP Family Medicine; Visit Provider Nurse Practitioner Family
DX: Z12.4 Encounter for screening for malignant neoplasm of cervix (principal); Z11.51 Encounter for screening for human papillomavirus (HPV)
CPT/HCPCS: 88142; 87624

== ENCOUNTER 2020-07-29 03:41 | Outpatient (CLI) | payer OTHER, SELFPAY ==
--- NOTE | 2020-07-29 07:00 | DI.MAMMO_ITS ---
EXAM: MAMMO SCREENING CLINICAL HISTORY: screening,Z12.39 TECHNIQUE: Mammograms were interpreted according to the usual protocol including computer analysis w [employer] CAD system, tomosynthesis and C-view imaging. COMPARISON: None. Baseline examination. FINDINGS: The breasts are composed of heterogeneously dense fibroglandular densities, Breast Density category C . Left breast: There is a lobulated area of nodularity in the superior portion of the left breast measu ring roughly 2 cm. Spot compression views and ultrasound are requested for further evaluation. Edgar gn scattered calcifications are seen. Right breast: No suspicious masses or suspicious microcalcifications are seen in the right breast.. No skin thickening or abnormal axillary lymph nodes are seen. IMPRESSION: BI-RADS Cat 0 - Assessment Incomplete: Need additional imaging evaluation. Spot compression views and ultrasound are requested for further evaluation of an area of nodularity i n the superior left breast. Breast Density Category C, heterogeneously Dense. The mammogram demonstrates the patient's breast tissue is dense. Dense breast tissue is very common a nd is not abnormal but dense breast tissue can make it harder to find cancer on a mammogram. Also, de nse breast tissue may increase breast cancer risk. This information about the result of the mammogram report was provided to the patient to raise their awareness. Use this report when you speak with the patient about their risks for breast cancer, which includes their family history. At that time, you may recommend additional screening tests (Ultrasound or MRI) as they might be useful based on their r isk. A negative radiographic report should not delay biopsy if a dominant or clinically suspicious mass is present. Up to ten percent of cancers are not identified on mammography. A negative report may reinforce clinical impression. Adenosis and dense breasts may obscure an underlying neoplasm. False positive reports average 6 to 10%.
== END 2020-07-29 04:01 ==
PROVIDERS: PCP Family Medicine; Visit Provider Nurse Practitioner Family
DX: Z12.31 Encounter for screening mammogram for malignant neoplasm of breast (principal); R92.8 Other abnormal and inconclusive findings on diagnostic imaging of breast
CPT/HCPCS: 77063; 77067

== ENCOUNTER 2020-08-04 01:16 | Outpatient (CLI) | payer OTHER, SELFPAY ==
--- NOTE | 2020-08-04 | DI.US_ITS ---
Exam(s) MG MAMMO SCREEN CALL BACK UNI US BREAST LT COMPLETE EXAM: MAMMO SCREEN CALL BACK UNI CLINICAL HISTORY: F/U MAMMO, LOBULATED NODULARITY. TECHNIQUE: Unilateral spot mammographic images were obtained with 3D tomosynthesis and utilizing [employer] puter aided detection (CAD). . Complete left breast Ultrasound was also performed. We also performed Beakley marker exercise where by skin marker was placed over a finding on today's ultrasound and thereafter of the left breast rich mmogrammed for correlative purposes. COMPARISON: Recent baseline screening mammogram of 423 21 was reviewed. This additional imaging w as performed due to findings described on that recent baseline screening mammogram. FINDINGS: First to be performed additional spot compression views and these additional views do not dissipate t he nodule of concern. We then proceeded to perform complete left breast ultrasound. Ultrasound performed today reveals a 4 x 3 millimeter benign microcyst at the 12 o'clock position. At 10 o'clock position there is an oval 8 x 3 millimeter wider than taller nodule with slightly incre ased through transmission which is either a complicated microcyst or possible small fibroadenoma. No worrisome associated decreased through transmission. At the 11 o'clock position, approximately 5 cm in from the nipple there is a subtle area of measuring approximately 3.5 x 1.3 cm which is difficult to delineate as a distinct nodule but does appear slig htly different from surrounding breast tissue. This does not exhibit worrisome decreased through tra nsmission and is wider than taller. At this point we placed a Beakley triangle over this area at the 11 o'clock position and the patient was brought to the mammogram suite for repeat CC and MLO views o f the left breast. These distal images reveal not exact correlation of the ultrasound and mammogram finding but generally in the same area. IMPRESSION: Mammogram and ultrasound findings in the left breast as described above which probably correlate (11 o'clock position). Although the ultrasound appearance is not typical of malignancy, given the mammog raphic appearance (plus the fact that there are no previous mammograms for comparison) I recommend re ferring this patient for breast MRI. Findings and recommendations were discussed by myself with the patient today. She was instructed to call her referring position tomorrow. BI-RADS Category 0 - Assessment Incomplete: Need additional imaging evaluation, specifically BREAST M RI STUDY Breast Density - Category C - Heterogeneously dense Breast density Category C or D implies that the patient has dense breast tissue. Dense breast tissue can make it harder to find cancer on a mammogram. Dense breast tissue is also associated with an incr eased risk of breast cancer. This information about the result of the mammogram report was provided to the patient to raise their awareness. Use this report when you speak with the patient about their risks for breast cancer, which includes their family history. At that time, you may recommend additional screening tests (Ultrasoun d or MRI) as these tests may add significant information. A negative radiographic report should not delay biopsy if a dominant or clinically suspicious mass is present. Up to ten percent of cancers are not identified on mammography. A negative report may reinforce clinical impression. Adenosis and dense breasts may obscure an underlying neoplasm. False positive reports average 6 to 10%. Patient will receive a letter notifying them of these results.
== END 2020-08-04 01:36 ==
PROVIDERS: PCP Family Medicine; Visit Provider Nurse Practitioner Family
DX: Z12.31 Encounter for screening mammogram for malignant neoplasm of breast (principal); R92.8 Other abnormal and inconclusive findings on diagnostic imaging of breast; N60.12 Diffuse cystic mastopathy of left breast; N63.22 Unspecified lump in the left breast, upper inner quadrant
CPT/HCPCS: 76642; 77063; 77067

== ENCOUNTER 2021-10-30 04:31 | Outpatient (CLI) | payer OTHER, SELFPAY ==
[2021-10-30 12:45] LABS: Calculated LDL 77 mg/dL (<100); Cholesterol 180 mg/dL (<200); HDL Cholesterol 91 mg/dL (40-60); Hemoglobin A1C 5.6 % (<5.7); TSH 1.77 uIU/mL (0.36-3.74); Triglyceride 62 mg/dL (<150)
== END 2021-10-30 04:32 | disposition home or self-care (01) ==
LOC: LOS 04:31
PROVIDERS: PCP Nurse Practitioner Family; Visit Provider Nurse Practitioner Family
DX: Z13.1 Encounter for screening for diabetes mellitus (principal); Z13.29 Encounter for screening for other suspected endocrine disorder; Z13.220 Encounter for screening for lipoid disorders
CPT/HCPCS: 36415; 80061; 83036; 84443

== ENCOUNTER 2024-07-24 17:00 | Emergency (ER) | payer OTHER, SELFPAY ==
[2024-07-24 17:04] VITALS: BP 138/77; PULSE 61; RESP 20; TEMP 35.6; O2SAT 100
--- NOTE | 2024-07-24 17:15 | RT.EKG_ITS ---
APPROVED REPORT Exam: Resting ECG Reason for Exam: chest pain Patient Location: E HR:54 bpm ECG Measurements Heart Rate 54 AXIS OR 153 P 52 QRSd 102 QRS 60 QT 496 T 31 QTc 470 Conclusion Sinus bradycardia...rate< 60
[2024-07-24] MEDS: MORPHine 4 MG/ML SYR IVP ×3 (17:23→20:26)
[2024-07-24] MEDS: Normal Saline - Diluent 50 ML VIAL IJ (17:47)
[2024-07-24] MEDS: Omnipaque 350 MG/ML 100 ML BTL 75 ML IJ (17:48)
--- NOTE | 2024-07-24 17:59 | DI.CT_ITS ---
Exam(s) CT CHEST PE ABD PELVIS W EXAM: CT CHEST PE ABD PELVIS W CLINICAL HISTORY: chest pain post bronch lung bx yesterday. TECHNIQUE: Imaging Protocol: Axial computed tomography images with coronal and sagittal reformatted images were created and reviewed. Computer aided detection (CAD) was utilized. CONTRAST MATERIAL: Intravenous: Omnipaque 350 Contrast volume:75ml Oral: / no COMPARISON: CT CHEST FOR PULMONARY EMBOLUS from 11/26/[address] ABDOMEN PELVIS W from 10/31/2018 FINDINGS: CHEST: Pulmonary parenchyma: Large solid appearing mass in the right upper lobe contact in the pleural super iorly and extending down to the level of the superior hilum. There are no visible vessels through th is mass. It measures approximately 10 by 9.5 x 8.5 cm. No visible bronchi. There are few bubbles o f air. Stable 7 millimeter nodule lateral left lung base. Tracheobronchial tree: No bronchiectasis. No mucous plugging.No bronchial wall thickening. Pleura: No effusion or pneumothorax. Mediastinum: Within normal limits. Pulmonary arteries: No visible emboli. Cardiovascular: The heart size is normal. No pericardial effusion. Ascending thoracic aorta measures 3.8 cm. Bones: Unremarkable for age. No lytic or blastic lesions.No compression fractures. Soft tissues: Unremarkable. ABDOMEN and PELVIS: Liver: Normal density. No suspicious mass. Gallbladder and biliary tract: Cholecystectomy. No biliary dilatation. Pancreas: Normal density, no abnormal calcifications or inflammatory process. Spleen: Normal. Kidneys: Normal size, contour and axis. No radiodense stones. No obstructive uropathy. No suspicious masses seen. Adrenal glands: No masses seen. Aorta: Abdominal portion non-dilated. Lymph nodes: Within normal limits. Soft tissues: Unremarkable. Bladder: Unremarkable. Bowel: Gastric surgery again noted. Anastomosis at small bowel of left mid abdomen. Dilated loops o f small bowel on the left side of the abdomen. The colon is collapsed. The findings are suspicious for small bowel obstruction. There is no bowel wall thickening or pneumatosis. There is some swirli ng of the central mesentery, not present previously. There is focal narrowing of the 2 SMA and SMV i n the area of swirled mesentery. There is no visible thrombus. Peritoneal cavity: Small amount of fluid in the low pelvis. No focal collection. No mesenteric infl ammatory response. No free air. Bones: Unremarkable for age. Reproductive organs: Unremarkable for age. IMPRESSION: Large mass in the right upper lobe. No evidence of pneumothorax or pneumomediastinum. No evidence of pulmonary embolism. Stable 7 millimeter nodule at the left lung base since 2019. Abnormally dilated bowel loops on the left side of the abdomen and pelvis. Distal small bowel and co elizabeth are decompressed. There is swelling of the mesentery and narrowing of the superior mesenteric ar charles in veins which could represent an internal hernia. Findings were called to Fabiana Garcia, ER provider. RADIATION DOSE DELIVERED: Total DLP DATA REPOSITORY: All CT scans at this facility are submitted to the National Radiology Data Registry (NRDR) Dose Index Registry (DIR) with the [employer] (ACR). RADIATION OPTIMIZATION: All CT scans at this facility use at least one of these dose optimization te chniques: automated exposure control; mA and/or kV adjustment per patient size (includes targeted exa ms where dose is matched to clinical indication); or iterative reconstruction.
[2024-07-24 18:13] LABS: Abs Immature Grans 0.46 10^3/uL (0.0-0.06); Absolute Basophil Count 0.05 10^3/uL (0.0-0.2); Absolute Monocyte Count 0.58 10^3/uL (0.1-0.8); Basophils % 0.2 %; HCT 25.2 % (36.0-46.0); HGB 7.2 g/dL (11.2-15.7); Immature Grans % 1.9 %; Lymphocytes % 4.3 %; MCH 18.7 pg (27.0-33.0); MCHC 28.6 % (32.0-36.0); MCV 65 fL (80-95); MPV 8.5 fL (8.0-11.0); Monocytes % 2.4 %; Neutrophils % 91.2 %; RBC 3.86 10^6/uL (3.93-5.22); RDW 19.2 % (11.7-14.6); RDW-SD 44.6 fL; WBC 24.37 10^3/uL (4.4-10.8)
[2024-07-24 18:14] VITALS: BP 154/81; PULSE 60; RESP 18; TEMP 34.6; O2SAT 100
[2024-07-24 18:18] LABS: Absolute Lymphocyte Count 1.05 10^3/uL (1.2-3.4); Absolute Neutrophil Count 22.23 10^3/uL (1.2-6.7)
[2024-07-24 18:30] LABS: Platelet Count 684 10^3/uL (130-400)
[2024-07-24 18:31] LABS: Anisocytosis 2+; Microcytosis 2+; Polychromasia Present
[2024-07-24 18:32] LABS: Poikilocytes 1+
[2024-07-24 18:33] LABS: Diff Comment Diff Reviewed
[2024-07-24 18:42] LABS: ALT 23 U/L (14-59); AST 22 U/L (15-37); Albumin 2.4 g/dL (3.4-5.0); Alkaline Phosphatase 121 U/L (46-116); Anion Gap 14.1 mmol/L (3-11); BUN 10 mg/dL (7-18); Bilirubin, Total 0.2 mg/dL (0.2-1.0); CO2 21.9 mmol/L (21.0-32.0); CREATININE 0.7 mg/dL (0.55-1.02); Calcium 9.3 mg/dL (8.5-10.1); Chloride 104 mmol/L (98-107); Estimated GFR 108.62 (mL/min/1.73m2); Glucose 147 mg/dL (74-106); Lipase 23 U/L (<78); Sodium 140 mmol/L (136-145); Total Protein 7.9 g/dL (6.4-8.2)
[2024-07-24 18:43] LABS: Potassium 2.9 mmol/L (3.5-5.1); Troponin I < 4 ng/L (<or=51)
[2024-07-24] MEDS: Normal Saline 1,000 ML 1000 ML IV ×2 (19:05→20:29)
[2024-07-24] MEDS: POTASSIUM CHLORIDE 20 MEQ/100 ML BAG 50 MEQ IV_INF (19:05)
[2024-07-24 19:14] LABS: Lactate 1.9 mmol/L (<or=2.0)
[2024-07-24 19:48] LABS: Troponin I < 4 ng/L (<or=51)
[2024-07-24 19:52] LABS: Magnesium 2.1 mg/dL (1.8-2.4)
[2024-07-24] MEDS: HYDROmorphone 2 MG/ML SYR 1 MG IVP (21:12)
[2024-07-24] MEDS: ACETAMINOPHEN 500 MG/50 ML BAG 200 MG IVPB (21:12)
--- NOTE | 2024-07-24 21:25 | ED.GENADUL_ITS ---
Discharge Plan Disposition Patient Disposition: Transfer-Acute Inpatient Care Specific Acute Inpt Facility: [facility] Discharge Details Clinical Impression: Bowel obstruction, Lung mass, Hypokalemia, Leukocytosis, Anemia Primary Care Provider: Aakash Green ED Provider: Fabiana Garcia Home Meds and New Rx's Prescriptions: No Action omeprazole 20 mg capsule,delayed release(DR/EC) 20 mg PO DAILY venlafaxine 75 mg capsule,extended release 24hr 75 mg PO DAILY Qty: 90 4RF Rx Instructions: Take with 150mg pill daily venlafaxine 150 mg capsule,extended release 24hr 150 mg PO DAILY Qty: 90 4RF acetaminophen [Tylenol] 325 mg Tablet 650 mg PO Q4H PRN PRNQty: 0 0RF HPI General Date/Time Provider Initiated Documentation: 07/24/24 17:08 . HPI Narrative: 44-year-old female with Rosario's esophagus, BPPV, depression, and anxiety presents with severe epigastric pain radiating around. Reports nausea without vomiting. Last bowel movement yesterday evening. No shortness of breath or blood in stool. Similar episode of small bowel obstruction several years ago resolved with clear liquids and NPO. Diagnosed with large lung mass at [facility], treated with Augmentin for suspected pneumonia secondary to lung mass. Informed of anemia and elevated WBC count during that visit. Underwent lung biopsy via bronchoscopy yesterday at [facility] with moderate sedation. Pulmonology appointment preceded procedure. Related Data Home Medications ?Medication ?Instructions ?Recorded ?Confirmed acetaminophen 325 mg tablet 650 mg (2 x 325 mg) PO Q4H PRN PRN 11/01/18 07/24/24 (Tylenol) #0 tabs omeprazole 20 mg capsule,delayed 20 mg PO DAILY 07/25/20 07/24/24 release venlafaxine 75 mg capsule,extended 75 mg PO DAILY #90 tab-caps 03/02/24 07/24/24 release 24 hr venlafaxine 150 mg 150 mg PO DAILY #90 tab-caps 05/27/24 07/24/24 capsule,extended release 24 hr Previous Rx's ?Medication ?Instructions ?Recorded acetaminophen 325 mg tablet 650 mg (2 x 325 mg) PO Q4H PRN PRN 11/01/18 (Tylenol) #0 tabs venlafaxine 75 mg capsule,extended 75 mg PO DAILY #90 tab-caps 03/02/24 release 24 hr venlafaxine 150 mg 150 mg PO DAILY #90 tab-caps 05/27/24 capsule,extended release 24 hr Allergies Allergy/AdvReac Type Severity Reaction Status Date / Time No Known Allergies Allergy Verified 07/24/24 17:14 General Stated Complaint: Abd Prob FAISAL: 3 Exam Narrative Exam Narrative: General Appearance: Alert and in acute distress. Vital signs: Within normal limits. HEENT: Within normal limits. Respiratory: Lungs clear in lower lobes. No respiratory distress. Gastrointestinal: Abdomen distended with bowel sounds. Exquisite tenderness in epigastrium and bilateral upper quadrants without rebound or guarding. Extremities: Distal pulses intact. No calf swelling or tenderness. Skin: No rashes or lesions. Neurological: Normal. Course Vital Signs Vital signs: Vital Signs Temperature 35.6 C L 07/24/24 17:04 Pulse 61 07/24/24 17:04 Respiratory Rate 20 07/24/24 17:04 Blood Pressure 138/77 07/24/24 17:04 Pulse Oximetry 100 07/24/24 17:04 Temperature 34.6 C L 07/24/24 18:14 Temperature Source Tympanic 07/24/24 18:14 Pulse 60 07/24/24 18:14 Respiratory Rate 18 07/24/24 18:14 Blood Pressure 154/81 H 07/24/24 18:14 Pulse Oximetry 100 07/24/24 18:14 Oxygen Delivery Method Room Air 07/24/24 17:04 Oxygen Flow Rate 0 07/24/24 17:04 Pain Level 10 07/24/24 17:23 Lab/Test Results Lab/Test Results: 07/24/24 20:25 Blood Blood Culture - Pending 07/24/24 20:22 Blood Blood Culture - Pending Laboratory Tests Range/Units 07/24/24 07/24/24 07/24/24 18:05 18:55 20:22 WBC (4.4-10.8) 10^3/uL 24.37 H RBC (3.93-5.22) 10^6/uL 3.86 L Hgb (11.2-15.7) g/dL 7.2 L Hct (36.0-46.0) % 25.2 L MCV (80-95) fL 65 L MCH (27.0-33.0) pg 18.7 L MCHC (32.0-36.0) % 28.6 L RDW (11.7-14.6) % 19.2 H Plt Count (130-400) 10^3/uL 684 H MPV (8.0-11.0) fL 8.5 Immature Gran % % 1.9 Neutrophils % % 91.2 Lymphocytes % % 4.3 Monocytes % % 2.4 Eosinophils % % 0.0 Basophils % % 0.2 Nucleated RBC % (0.0-0.3) % 0.0 Absolute Neutrophils (1.2-6.7) 10^3/uL 22.23 H Absolute Lymphocytes (1.2-3.4) 10^3/uL 1.05 L Absolute Monocytes (0.1-0.8) 10^3/uL 0.58 Absolute Eosinophils (0.0-0.7) 10^3/uL 0.00 Absolute Basophils (0.0-0.2) 10^3/uL 0.05 RBC Morphology See Below Polychromasia Present Poikilocytosis 1+ Anisocytosis 2+ Microcytosis 2+ VBG Lactate (<or=2.0) mmol/L 1.9 Sodium (136-145) mmol/L 140 Potassium (3.5-5.1) mmol/L 2.9 L* Chloride (98-107) mmol/L 104 Carbon Dioxide (21.0-32.0) mmol/L 21.9 Anion Gap (3-11) mmol/L 14.1 H BUN (7-18) mg/dL 10 Creatinine (0.55-1.02) mg/dL 0.7 Est GFR (CKD-EPI 2020) (mL/min/1.73m2) 108.62 Glucose (74-106) mg/dL 147 H Calcium (8.5-10.1) mg/dL 9.3 Magnesium (1.8-2.4) mg/dL 2.1 Total Bilirubin (0.2-1.0) mg/dL 0.2 AST (15-37) U/L 22 ALT (14-59) U/L 23 Alkaline Phosphatase (46-116) U/L 121 H Troponin I (<or=51) ng/L < 4 < 4 Total Protein (6.4-8.2) g/dL 7.9 Albumin (3.4-5.0) g/dL 2.4 L Lipase (<78) U/L 23 ABO/Rh O Negative Antibody Screen NEGATIVE Medical Decision Making Laboratory Studies Potassium 2.9. QTc within normal limits. Magnesium 2.1. Lipase normal. Anion gap 14. Neutrophil count 22,000. Hemoglobin 7.2, hematocrit 25.2. WBC count 24,000. Imaging CT shows small bowel obstruction with possible focal narrowing to SMA and SMV. CTA shows large lung mass without obvious infiltrate per radiology interpretation and discussion with Dr. Dodge. Initial Assessment: 44-year-old female with history of Rosario's esophagus, BPPV, depression, and anxiety, presenting with severe epigastric pain radiating around, nausea without vomiting, and distended abdomen with bowel sounds. Recent bronchoscopy and lung biopsy for large lung mass, treated with Augmentin for suspected pneumonia. Differential Diagnosis: - Small bowel obstruction: Severe epigastric pain, distended abdomen, CT abdomen and pelvis show small bowel obstruction with possible focal narrowing to SMA and SMV. NPO, received 2 L fluid, 20 mEq potassium for potassium level of 2.9, and 8 mg morphine for pain. Administering 1 mg Dilaudid. Discussed with Dr. Jama, surgeon on-call for [facility], accepted for transfer to [facility] for further evaluation and management due to history of bariatric surgery. - Large lung mass: Diagnosed with large lung mass, currently evaluated at [facility]. Bronchoscopy and lung biopsy yesterday. CTA chest shows large lung mass without obvious infiltrate. Treated with Augmentin for suspected pneumonia secondary to lung mass. Remains anemic with hemoglobin 7.2, hematocrit 25.2, and elevated WBC count 24,000. Administering Zosyn as Augmentin not taken today. Blood cultures and type and screen pending, no indication for urgent transfusion. ED Course: - Ordered CTA chest and CT abdomen and pelvis without oral contrast. - CT abdomen and pelvis show small bowel obstruction with possible focal narrowing to SMA and SMV. - CTA chest shows large lung mass without obvious infiltrate per radiology interpretation and discussion with Dr. Dodge. - Called general surgeon Dr. Nye, patient needs transfer to [facility]. - Administered 8 mg morphine and 1 mg Dilaudid for pain. - Patient remained NPO. - Administered 2 L fluid and 20 mEq potassium for potassium level of 2.9. - QTc within normal limits, no EKG changes associated with hypokalemia. - Magnesium within normal limits. - Lipase within normal limits. - Neutrophil count of 22,000. - Hemoglobin of 7.2, hematocrit of 25.2, WBC count of 24,000. - Administered Zosyn as Augmentin not taken today. - Lactate negative, blood cultures pending. - Type and screen pending, no indication for urgent transfusion. - Case discussed with Dr. Bray, emergency room physician at [facility], accepted for assessment in the emergency department. Final Assessment: Patient with severe epigastric pain and distended abdomen diagnosed with small bowel obstruction, requiring transfer to [facility] for further evaluation and management. Large lung mass evaluated at [facility], treated for suspected pneumonia, remains anemic with elevated WBC count. Clinical Impression: - Small bowel obstruction - Large lung mass Disposition: - Transfer: Accepted for transfer to [facility] for further evaluation and management. MDM Components Evaluation: - Number of Differential Diagnoses or Management Options: Small bowel obstruction, large lung mass. - Amount and Complexity of Data Reviewed: CTA chest, CT abdomen and pelvis, blood cultures, type and screen, discussion with Dr. Dodge and Dr. Nye. - Risk of Complication and Morbidity or Mortality: High risk due to small bowel obstruction and large lung mass, anemia, elevated WBC count, and recent bronchoscopy and lung biopsy. Quality:SDOH Health Related Social Needs: Health related social needs details None PFSH All Active Problems (Updated 07/24/24 @ 22:59 by ANTONELLA Andrade) Anemia (Chronic) Leukocytosis (Acute) Hypokalemia (Acute) Lung mass (Acute) Bowel obstruction (Acute) Consolidation of right upper lobe of lung (Acute) Generalized anxiety disorder (Acute) Depressive disorder (Chronic) BPPV (benign paroxysmal positional vertigo) (Acute) Barretts esophagus (Chronic) Medical History Barretts esophagus BPPV (benign paroxysmal positional vertigo) Deep vein thrombosis (DVT) of right lower extremity (~2017) Provoked DVT of distal femoral, popliteal, and gastrocnemius after ankle fx Depressive disorder Generalized anxiety disorder Surgical History H/O LEEP (~1996) History of bilateral tubal ligation 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 Son No problems noted. Daughter Depression Daughter No problems noted. Maternal Grandfather No problems noted. Maternal Grandmother No problems noted. Paternal Grandfather No problems noted. Paternal Grandmother No problems noted. Social History (Updated 08/19/23 @ 16:23 by Yamel Stevens) Smoking/Tobacco Use Status: Former Tobacco Use tobacco type: cigarettes Second Hand Exposure: Yes Smoking risk assessment performed?: Yes Alcohol Intake: never Drug use: Never Substance use type: does not use Caregiver/Support person: No Household members: significant other and children Housing: house Communication Needs: None Do you need help understanding health information?: Never Pets and animals: Yes Pets and animals: cat(s) and dog(s) Sexually active: Yes Do you think of yourself as: straight/heterosexual Current gender identity: female What is your relationship status?: How often do you talk on the phone with friends or family?: three or more times per week How often do you get together with friends or relatives?: twice per week How often do you attend hinduism or orthodoxy services?: 1-3 times per year Do you belong to any clubs or organized social groups?: no Panel score (0-1 are the most socially isolated patients): 2 What type of physical activity do you participate in: walking Duration: 15-30 minutes/day Frequency: 3-4 times per week Evita/Gnosticism: Advent Special evita needs: No Seatbelt use: always Drive intox or ride w/intox class c driver: No Do you feel safe at home: Yes Do you feel safe in your relationship?: Yes Victim of physical abuse: No Victim of emotional abuse: No Victim of sexual abuse: No Would you like helpful sources: No Female Reproductive History Menstrual control method: permanent sterilization History History 4 Para 3 Hx # Term Pregnancies Multiple births Hx # Pregnancies Ectopic pregnancies AB induced Hx Number of Living Children 3 AB spontaneous 1
[2024-07-24 21:29] VITALS: BP 137/78; PULSE 68; RESP 12; TEMP 36.2; O2SAT 100
--- NOTE | 2024-07-24 22:49 | NUR.NOTE ---
at 2150 this assembly instructions writer called [facility] ED to give report on pt transfer. This assembly instructions writer was told that the charge nurse Indigo would call back.
--- NOTE | 2024-07-26 08:18 | W.ED.FU ---
Date of service: 07/24/24 Follow Up Plan: Positive blood culture results noted today. I reviewed the chart and have seen that patient was transferred to [facility] for further management. Culture results will be sent there.
--- NOTE | 2024-07-26 08:29 | NUR.NOTE ---
Access [facility] account for Dr. Zhao to review due to preliminary blood culture results being positive. Prelim results faxed to [facility]. (P [phone] F [phone]) Nursing Note:
== END 2024-07-24 22:59 | disposition short-term general hospital (02) ==
PROVIDERS: Emergency Provider Physician Assistant; PCP Nurse Practitioner Family
DX: K56.691 Other complete intestinal obstruction (principal); R91.8 Other nonspecific abnormal finding of lung field; E87.6 Hypokalemia; D72.829 Elevated white blood cell count, unspecified; D64.9 Anemia, unspecified; R00.1 Bradycardia, unspecified; Z98.84 Bariatric surgery status; Z86.718 Personal history of other venous thrombosis and embolism
CPT/HCPCS: 36415; 71275; 74177; 80053; 83690; 86850; 86900; 86901; 87040; 87077; 93005; 96365; 96366; 96368; 96375; 96376; 99285; 83605; 83735; 84484; 85025; 93010; J0131; J1171; J2270; J2543; J3480; J3490